=== PATIENT | male | born 1985 | race Caucasian/White ===

== ENCOUNTER 2021-11-16 14:55 | Emergency (ER) | payer BC ==
[~2021-11-16] VITALS: Ht 172.7 cm; Wt 91.2 kg
[2021-11-16 15:50] LABS: BASOPHILS ABSOLUTE AUTO 0.06 K/mm3 (0.00-0.23); BASOPHILS PERCENT AUTO 1 % (0-2); EOSINOPHILS ABSOLUTE AUTO 0.08 K/mm3 (0.00-0.68); EOSINOPHILS PERCENT AUTO 2 % (0-6); Hematocrit 40.1 % (37.0-53.0); Hemoglobin 13.8 g/dL (13.5-17.5); IMMATURE GRAN ABSOLUTE AUTO 0.01 K/mm3 (0.00-0.10); IMMATURE GRAN PERCENT AUTO 0 % (0-1); LYMPHOCYTES PERCENT AUTO 17 % (21-46); MONOCYTES ABSOLUTE AUTO 0.43 K/mm3 (0.16-1.47); MONOCYTES PERCENT AUTO 8 % (4-13); Mean Corpuscular HGB 30.4 pg (26.0-34.0); Mean Corpuscular HGB Conc 34.4 g/dL (31.5-36.5); Mean Corpuscular Volume 88 fL (80-100); Mean Platelet Volume 10.9 fL (9.1-12.4); NEUTROPHILS ABSOLUTE AUTO 3.99 K/mm3 (1.96-9.15); NEUTROPHILS PERCENT AUTO 73 % (41-73); Platelet Count 132 K/mm3 (150-400); RDW Coefficient Variation 17.2 % (11.7-14.2); RDW Standard Deviation 55.6 fL (35.1-46.3); Red Blood Cell Count 4.54 M/mm3 (4.30-5.90); White Blood Cell Count 5.47 K/mm3 (4.00-11.30)
[2021-11-16 16:00] LABS: International Normalized Ratio 1.41; Prothrombin Time Results 14.5 Sec (9.7-11.5)
[2021-11-16 16:04] LABS: Albumin, Blood 3.2 g/dL (3.4-5.0); Albumin/Globulin Ratio 0.7 (0.8-1.8); Bilirubin, Total 13.4 mg/dL (0.1-1.0); Calcium, Blood 9.1 mg/dL (8.5-10.1); Creatinine, Blood 0.61 mg/dL (0.60-1.20); Globulin, Blood 4.7 g/dL (2.2-4.0); Potassium, Blood 3.4 mmol/L (3.5-5.5); Total Protein, Blood 7.9 g/dL (6.4-8.2)
[2021-11-16 19:52] LABS: Source, Urine Clean Catch
[2021-11-16 19:59] LABS: Appearance, Urine Clear (Clear); Blood, Urine 1+ (Neg); Color, Urine Amber (P-Yellow); Glucose Qualitative, Urine Neg (Neg); Ketones, Urine Neg (Neg); Leukocyte Esterase, Urine 1+ (Neg); Nitrite, Urine Neg (Neg); Protein, Urine 1+ (Neg); Urobilinogen, Urine 3+ (Normal)
[2021-11-16 20:15] LABS: Bilirubin, Urine 3+ (Neg)
[2021-11-16 20:18] LABS: Bacteria Not Seen /hpf; Red Blood Cells, Urine 0-2 /hpf (0-2); Squamous Epithelial Cells Rare /hpf (Few); White Blood Cells, Urine 0-2 /hpf (0-5)
[2021-11-16] MEDS ORDERED: Neurontin 300300 MG PO (22:01)
[2021-11-16] MEDS ORDERED: ONDA4ODT SL (22:01)
[2021-11-16] MEDS ORDERED: Ativan1 MG SL (22:01)
== END 2021-11-16 22:34 | disposition home or self-care (01) ==
LOC: ER 14:55
PROVIDERS: Student in an Organized Health Care Education/Training Program
DX: K70.10 Alcoholic hepatitis without ascites (principal); F17.220 Nicotine dependence, chewing tobacco, uncomplicated; Z86.16 Personal history of COVID-19; F41.9 Anxiety disorder, unspecified; Z72.89 Other problems related to lifestyle
CPT/HCPCS: 36415; 74177; 80053; 81001; 83690; 85025; 85610; A9270; J3430; Q9967

== ENCOUNTER 2021-11-25 13:54 | Inpatient (IN) | payer BC ==
[~2021-11-25] VITALS: Ht 175.3 cm; Wt 98.7 kg
[~2021-11-25 13:54] MED LIST: Ativan1 MG SL; Neurontin 300300 MG PO; ONDA4ODT SL
[2021-11-25 15:28] LABS: International Normalized Ratio 1.71; Prothrombin Time Results 17.3 Sec (9.7-11.5)
[2021-11-25 15:42] LABS: BASOPHILS ABSOLUTE AUTO 0.08 K/mm3 (0.00-0.23); BASOPHILS PERCENT AUTO 1 % (0-2); EOSINOPHILS ABSOLUTE AUTO 0.12 K/mm3 (0.00-0.68); EOSINOPHILS PERCENT AUTO 1 % (0-6); Hemoglobin 11.8 g/dL (13.5-17.5); IMMATURE GRAN ABSOLUTE AUTO 0.06 K/mm3 (0.00-0.10); IMMATURE GRAN PERCENT AUTO 1 % (0-1); LYMPHOCYTES ABSOLUTE AUTO 0.67 K/mm3 (0.84-5.20); LYMPHOCYTES PERCENT AUTO 6 % (21-46); MONOCYTES ABSOLUTE AUTO 0.67 K/mm3 (0.16-1.47); MONOCYTES PERCENT AUTO 6 % (4-13); Mean Corpuscular HGB 31.4 pg (26.0-34.0); Mean Corpuscular HGB Conc 36.9 g/dL (31.5-36.5); Mean Corpuscular Volume 85 fL (80-100); Mean Platelet Volume 9.5 fL (9.1-12.4); NEUTROPHILS ABSOLUTE AUTO 8.82 K/mm3 (1.96-9.15); NEUTROPHILS PERCENT AUTO 85 % (41-73); Platelet Count 189 K/mm3 (150-400); RDW Coefficient Variation 17.1 % (11.7-14.2); Red Blood Cell Count 3.76 M/mm3 (4.30-5.90); White Blood Cell Count 10.42 K/mm3 (4.00-11.30)
[2021-11-25 15:44] LABS: Albumin, Blood 2.3 g/dL (3.4-5.0); Albumin/Globulin Ratio 0.6 (0.8-1.8); Bilirubin, Total 24.7 mg/dL (0.1-1.0); Bun/Creatinine Ratio 11.9 (12.0-20.0); Calcium, Blood 8.6 mg/dL (8.5-10.1); Creatinine, Blood 1.09 mg/dL (0.60-1.20); Globulin, Blood 4.1 g/dL (2.2-4.0); Potassium, Blood 3.5 mmol/L (3.5-5.5); Total Protein, Blood 6.4 g/dL (6.4-8.2)
[2021-11-25 18:12] LABS: International Normalized Ratio 1.72; Prothrombin Time Results 17.4 Sec (9.7-11.5)
[2021-11-25 21:24] LABS: Influenza A, PCR NEGATIVE (NEGATIVE); Influenza B, PCR NEGATIVE (NEGATIVE); Resp Syncytial Virus, PCR NEGATIVE (NEGATIVE); SARS-Cov-2 (COVID-19) PCR, MMC NEGATIVE (NEGATIVE)
[2021-11-26 01:55] LABS: International Normalized Ratio 1.73; Prothrombin Time Results 17.5 Sec (9.7-11.5)
[2021-11-26 02:01] LABS: BASOPHILS ABSOLUTE AUTO 0.05 K/mm3 (0.00-0.23); BASOPHILS PERCENT AUTO 1 % (0-2); EOSINOPHILS ABSOLUTE AUTO 0.09 K/mm3 (0.00-0.68); EOSINOPHILS PERCENT AUTO 1 % (0-6); Hemoglobin 10.7 g/dL (13.5-17.5); IMMATURE GRAN ABSOLUTE AUTO 0.04 K/mm3 (0.00-0.10); IMMATURE GRAN PERCENT AUTO 1 % (0-1); LYMPHOCYTES ABSOLUTE AUTO 0.43 K/mm3 (0.84-5.20); LYMPHOCYTES PERCENT AUTO 5 % (21-46); MONOCYTES ABSOLUTE AUTO 0.57 K/mm3 (0.16-1.47); MONOCYTES PERCENT AUTO 7 % (4-13); Mean Corpuscular HGB Conc 36.9 g/dL (31.5-36.5); Mean Corpuscular Volume 87 fL (80-100); Mean Platelet Volume 9.8 fL (9.1-12.4); NEUTROPHILS ABSOLUTE AUTO 7.51 K/mm3 (1.96-9.15); NEUTROPHILS PERCENT AUTO 86 % (41-73); NRBC ABSOLUTE 0.02 K/mm3 (0.00-0.02); NRBC Auto 0.2 /100 WBC (0.0-0.2); Platelet Count 151 K/mm3 (150-400); RDW Coefficient Variation 17.3 % (11.7-14.2); Red Blood Cell Count 3.34 M/mm3 (4.30-5.90); White Blood Cell Count 8.69 K/mm3 (4.00-11.30)
[2021-11-26 02:13] LABS: Albumin, Blood 2.1 g/dL (3.4-5.0); Albumin/Globulin Ratio 0.6 (0.8-1.8); Bilirubin, Total 23.8 mg/dL (0.1-1.0); Calcium, Blood 7.7 mg/dL (8.5-10.1); Creatinine, Blood 1.5 mg/dL (0.60-1.20); Globulin, Blood 3.4 g/dL (2.2-4.0); Potassium, Blood 3.9 mmol/L (3.5-5.5); Total Protein, Blood 5.5 g/dL (6.4-8.2)
[2021-11-26 02:26] LABS: Source, Urine Clean Catch
[2021-11-26 02:33] LABS: Blood, Urine 3+ (Neg); Glucose Qualitative, Urine Neg (Neg); Ketones, Urine 1+ (Neg); Leukocyte Esterase, Urine 1+ (Neg); Nitrite, Urine Neg (Neg); Protein, Urine 2+ (Neg); Specific Gravity, Urine 1.015 (1.003-1.022); Urobilinogen, Urine 3+ (Normal); pH, Urine 6.5 (5.0-8.0)
[2021-11-26 02:35] LABS: Appearance, Urine Cloudy (Clear); Bilirubin, Urine 3+ (Neg); Color, Urine Amber (P-Yellow)
[2021-11-26 02:46] LABS: U Amphetamine Screen Not Detected; U Barbituate Screen Not Detected; U Benzodiazapine Screen DETECTED; U Buprenorphine Screen Not Detected; U Cannabinoids Screen Not Detected; U Cocaine Screen Not Detected; U Methadone Screen Not Detected; U Methamphetamine Screen Not Detected; U Opiates Screen Not Detected; U Oxycodone Screen Not Detected; U Phencyclidine Screen Not Detected; U Propoxyphene Screen Not Detected
[2021-11-26 02:54] LABS: Bacteria Many /hpf; Mucus Light (0-Heavy); Squamous Epithelial Cells Not Seen /hpf (Few); White Blood Cells, Urine 50-100 /hpf (0-5)
[2021-11-26 02:55] LABS: Amorphous Mod (0-Heavy); Transitional Epithelial Cells Few /hpf (0-Rare); WBC Cast 0-2 /lpf (0)
--- NOTE | 2021-11-26 05:49 | NUR ---
SHIFT SUMMARY ASSUMED CARE OF PT AROUND 2200. PT IS A/OX4 BUT LETHARGIC. SKIN TONE JAUNDICED. HEART SOUNDS TACHY. LUNG SOUNDS CLEAR. PT ABD IS DISTENDED, FIRM, AND TENDER. PT C/O PAIN ON THE R SIDE. PT VOIDED DARK/ GREEN URINE. SAMPLE SENT. PT HAS HAD TWO BM, LOOSE AND BROWN/ORANGE AND SPECS OF BLOOD. PT STATES HE HAS HEMRROIDS. PT HAD EPISODE OF BROWN/ BLOODY EMESIS AFTER TAKING PO LIBRIUM. CIWAHS TREATED WITH IV MEDICATIONS. PT IS UNSTEADY ON HIS FEET AND NEEDS 1P ASSISTANCE. PT CIWAH RANGED FROM 8-19. PT STATES LAST DRINK WAS 11/25/21 @ 1000.
[2021-11-26 07:16] LABS: BASOPHILS ABSOLUTE AUTO 0.05 K/mm3 (0.00-0.23); BASOPHILS PERCENT AUTO 1 % (0-2); EOSINOPHILS ABSOLUTE AUTO 0.07 K/mm3 (0.00-0.68); EOSINOPHILS PERCENT AUTO 1 % (0-6); Hematocrit 28.8 % (37.0-53.0); Hemoglobin 10.8 g/dL (13.5-17.5); IMMATURE GRAN ABSOLUTE AUTO 0.05 K/mm3 (0.00-0.10); IMMATURE GRAN PERCENT AUTO 1 % (0-1); LYMPHOCYTES PERCENT AUTO 3 % (21-46); MONOCYTES ABSOLUTE AUTO 0.67 K/mm3 (0.16-1.47); MONOCYTES PERCENT AUTO 6 % (4-13); Mean Corpuscular HGB 32.3 pg (26.0-34.0); Mean Corpuscular HGB Conc 37.5 g/dL (31.5-36.5); Mean Corpuscular Volume 86 fL (80-100); Mean Platelet Volume 9.4 fL (9.1-12.4); NEUTROPHILS ABSOLUTE AUTO 9.51 K/mm3 (1.96-9.15); NEUTROPHILS PERCENT AUTO 89 % (41-73); Platelet Count 157 K/mm3 (150-400); RDW Coefficient Variation 17.4 % (11.7-14.2); RDW Standard Deviation 54.4 fL (35.1-46.3); Red Blood Cell Count 3.34 M/mm3 (4.30-5.90); White Blood Cell Count 10.65 K/mm3 (4.00-11.30)
[2021-11-26 07:56] LABS: Albumin/Globulin Ratio 0.6 (0.8-1.8); Bilirubin, Total 23.9 mg/dL (0.1-1.0); Bun/Creatinine Ratio 10.7 (12.0-20.0); Calcium, Blood 7.7 mg/dL (8.5-10.1); Creatinine, Blood 1.59 mg/dL (0.60-1.20); Globulin, Blood 3.6 g/dL (2.2-4.0); Total Protein, Blood 5.6 g/dL (6.4-8.2)
--- NOTE | 2021-11-26 12:07 | NUR ---
UPDATE PT A&O X4 THIS AM. SPEECH GARBLED, DIFFICULT TO UNDERSTAND. THIS MORNING, PT ABLE TO STAND/TRANSFER TO BSC W/ 1 PERSON ASSIST. ON LAST ATTEMPT TO BSC, PT MORE UNSTEADY W/ LOSS OF BALANCE, STABILIZED & HELD UPRIGHT W/ MAX NURSE ASSIST, PREVENTING PT FALL. PT URINATED ALL OVER FLOOR & HAD 1 SMALL, SOFT BROWN BM IN BSC W/ SPOTS OF RED IN STOOL. SMALL AMOUNT OF RED NOTED ON WIPES AFTER WIPING PT. PT ASSISTED BACK TO BED BY 2 PEOPLE. PT DROPPING THINGS FREQUENTLY, BECOMING LESS COORDINATED T/O THE MORNING. PT CIWA 10-11, MEDICATING W/ PRN PO LIBRIUM PER EMAR. PT SWALLOWING FIRST DOSE OF LIBRIUM WELL. PT DIFFICULTY SWALLOWING 2ND DOSE OF LIBRIUM LATER THIS AM, SPUTTERING WATER AT THE END. PT VSS. SPO2 > 92% ON RA. MONITOR SHOWING ST, HR 110s-130s. PT SLEEPING INTERMITTENTLY. BED ALARM ON.
[2021-11-26 13:04] LABS: BASOPHILS ABSOLUTE AUTO 0.02 K/mm3 (0.00-0.23); BASOPHILS PERCENT AUTO 0 % (0-2); EOSINOPHILS ABSOLUTE AUTO 0.05 K/mm3 (0.00-0.68); EOSINOPHILS PERCENT AUTO 1 % (0-6); Hematocrit 28.7 % (37.0-53.0); Hemoglobin 10.6 g/dL (13.5-17.5); IMMATURE GRAN ABSOLUTE AUTO 0.03 K/mm3 (0.00-0.10); IMMATURE GRAN PERCENT AUTO 0 % (0-1); LYMPHOCYTES ABSOLUTE AUTO 0.24 K/mm3 (0.84-5.20); LYMPHOCYTES PERCENT AUTO 3 % (21-46); MONOCYTES ABSOLUTE AUTO 0.33 K/mm3 (0.16-1.47); MONOCYTES PERCENT AUTO 3 % (4-13); Mean Corpuscular HGB 32.3 pg (26.0-34.0); Mean Corpuscular HGB Conc 36.9 g/dL (31.5-36.5); Mean Corpuscular Volume 88 fL (80-100); Mean Platelet Volume 9.5 fL (9.1-12.4); NEUTROPHILS ABSOLUTE AUTO 8.93 K/mm3 (1.96-9.15); NEUTROPHILS PERCENT AUTO 93 % (41-73); Platelet Count 133 K/mm3 (150-400); RDW Coefficient Variation 17.9 % (11.7-14.2); RDW Standard Deviation 56.9 fL (35.1-46.3); Red Blood Cell Count 3.28 M/mm3 (4.30-5.90)
[2021-11-26 13:34] LABS: Albumin/Globulin Ratio 0.6 (0.8-1.8); Bilirubin, Total 23.5 mg/dL (0.1-1.0); Bun/Creatinine Ratio 10.2 (12.0-20.0); Calcium, Blood 7.7 mg/dL (8.5-10.1); Creatinine, Blood 1.77 mg/dL (0.60-1.20); Globulin, Blood 3.5 g/dL (2.2-4.0); Potassium, Blood 4.5 mmol/L (3.5-5.5); Total Protein, Blood 5.5 g/dL (6.4-8.2)
--- NOTE | 2021-11-26 17:39 | NUR ---
[facility] TRANSFER [facility] W/ BED ASSIGNMENT FOR PT. PT's PARENTS AT BEDSIDE, UPDATED ON PT TRANSFER. PT W/ NO FURTHER BLOODY EMESIS OR STOOL THIS SHIFT AFTER THIS AM. PT VSS. SPO2 > 92% ON RA. MONITOR SHOWING ST, HR 100-130s. CIWAS 10-13. REPORT CALLED TO ACCEPTING [facility] NURSE. PT MEDICATED W/ PRN LIBRIUM PER EMAR PRTOR TO TRANSFER. EMS TO , TAKING PT BY BELKIS W/ CONTINUOUS PROTONIX GTT, OCTREOTIDE GTT & NS GTT INFUSING PER ORDERS. PT DEPARTED PCU FOR THE [facility] @ 2234. PT's BELONGINGS TAKEN HOME BY PT's PARENTS.
== END 2021-11-26 17:24 | disposition short-term general hospital (02) | DRG 433 ==
LOC: ER 13:54 → PCU 22:31
PROVIDERS: Emergency Medicine; Physician Assistant; Student in an Organized Health Care Education/Training Program; ADMIT Internal Medicine
DX: K70.10 Alcoholic hepatitis without ascites (principal); E44.1 Mild protein-calorie malnutrition; F10.239 Alcohol dependence with withdrawal, unspecified; E87.1 Hypo-osmolality and hyponatremia; K92.0 Hematemesis; E88.09 Other disorders of plasma-protein metabolism, not elsewhere classified; E16.2 Hypoglycemia, unspecified; F17.220 Nicotine dependence, chewing tobacco, uncomplicated; E86.0 Dehydration; Z20.822 Contact with and (suspected) exposure to COVID-19; F41.9 Anxiety disorder, unspecified; Z68.29 Body mass index [BMI] 29.0-29.9, adult; Z98.890 Other specified postprocedural states; Z79.899 Other long term (current) drug therapy
CPT/HCPCS: 0241U; 36415; 80053; 81001; 82140; 83690; 83735; 84100; 85025; 85610; 85730; 87086; 96365; 96366; 96368; 96375; 96376; 99285-25; A9270; C1751; C9113; J0696; J2060; J2354; J2405; J3411; J7030; J7050; J7060

== ENCOUNTER → 2021-12-31 | Outpatient (CLI) | payer BC | END | disposition home or self-care (01) | LOC: LAB DAV 07:30 → EDSTATUS 10:18 | DX: Z02.83 Encounter for blood-alcohol and blood-drug test (principal) | CPT/HCPCS: G0480 ==

== ENCOUNTER → 2022-01-03 | Outpatient (CLI) | payer BC | END | disposition home or self-care (01) | LOC: LAB DAV 05:50 → EDSTATUS 10:18 | DX: Z02.83 Encounter for blood-alcohol and blood-drug test (principal); Z79.899 Other long term (current) drug therapy | CPT/HCPCS: G0480 ==

== ENCOUNTER 2022-01-11 14:28 | Day surgery (SDC) | payer BC | END 2022-01-11 23:59 | disposition home or self-care (01) | LOC: US 14:28 | DX: K72.00 Acute and subacute hepatic failure without coma (principal); R18.8 Other ascites | CPT/HCPCS: 49083 ==

== ENCOUNTER 2022-01-14 14:31 | Day surgery (SDC) | payer BC | END 2022-01-14 22:55 | disposition home or self-care (01) | LOC: US 14:31 | DX: K72.00 Acute and subacute hepatic failure without coma (principal); K70.11 Alcoholic hepatitis with ascites; F10.10 Alcohol abuse, uncomplicated | CPT/HCPCS: 49083 ==

== ENCOUNTER 2022-01-18 13:51 | Day surgery (SDC) | payer BC | END 2022-01-18 16:20 | disposition home or self-care (01) | LOC: ATC 13:51 → US 13:51 → ATC 16:20 | DX: K72.00 Acute and subacute hepatic failure without coma (principal) | CPT/HCPCS: 49083; 96365; P9047 ==

== ENCOUNTER 2022-01-21 14:30 | Day surgery (SDC) | payer BC | END 2022-01-21 23:07 | disposition home or self-care (01) | LOC: US 14:30 | DX: K72.00 Acute and subacute hepatic failure without coma (principal); R18.8 Other ascites | CPT/HCPCS: 49083 ==

== ENCOUNTER → 2022-01-24 | Outpatient (CLI) | payer BC ==
[2022-01-24 17:40] LABS: BASOPHILS ABSOLUTE AUTO 0.08 K/mm3 (0.00-0.23); BASOPHILS PERCENT AUTO 0 % (0-2); EOSINOPHILS ABSOLUTE AUTO 0.06 K/mm3 (0.00-0.68); EOSINOPHILS PERCENT AUTO 0 % (0-6); Hematocrit 25.7 % (37.0-53.0); Hemoglobin 8.2 g/dL (13.5-17.5); IMMATURE GRAN ABSOLUTE AUTO 0.09 K/mm3 (0.00-0.10); IMMATURE GRAN PERCENT AUTO 1 % (0-1); LYMPHOCYTES ABSOLUTE AUTO 1.96 K/mm3 (0.84-5.20); LYMPHOCYTES PERCENT AUTO 11 % (21-46); MONOCYTES ABSOLUTE AUTO 1.58 K/mm3 (0.16-1.47); MONOCYTES PERCENT AUTO 9 % (4-13); Mean Corpuscular HGB 28.2 pg (26.0-34.0); Mean Corpuscular HGB Conc 31.9 g/dL (31.5-36.5); Mean Corpuscular Volume 88 fL (80-100); Mean Platelet Volume 9.6 fL (9.1-12.4); NEUTROPHILS ABSOLUTE AUTO 14.85 K/mm3 (1.96-9.15); NEUTROPHILS PERCENT AUTO 80 % (41-73); Platelet Count 189 K/mm3 (150-400); RDW Coefficient Variation 14.2 % (11.7-14.2); RDW Standard Deviation 45.7 fL (35.1-46.3); Red Blood Cell Count 2.91 M/mm3 (4.30-5.90); White Blood Cell Count 18.62 K/mm3 (4.00-11.30)
[2022-01-24 18:40] LABS: Albumin, Blood 1.1 g/dL (3.4-5.0); Albumin/Globulin Ratio 0.2 (0.8-1.8); Bilirubin, Total 2.2 mg/dL (0.1-1.0); Bun/Creatinine Ratio 5.8 (12.0-20.0); Calcium, Blood 7.7 mg/dL (8.5-10.1); Creatinine, Blood 3.42 mg/dL (0.60-1.20); Globulin, Blood 4.6 g/dL (2.2-4.0); Total Protein, Blood 5.7 g/dL (6.4-8.2)
== END | disposition home or self-care (01) ==
LOC: LAB SHORT 16:05
PROVIDERS: Internal Medicine
DX: K70.31 Alcoholic cirrhosis of liver with ascites (principal)
CPT/HCPCS: 80053; 85025

== ENCOUNTER 2022-01-25 15:05 | Day surgery (SDC) | payer BC | END 2022-01-25 16:30 | disposition home or self-care (01) | LOC: ATC 15:05 | DX: K74.60 Unspecified cirrhosis of liver (principal); R18.8 Other ascites; K72.00 Acute and subacute hepatic failure without coma | CPT/HCPCS: 49083; P9047 ==

== ENCOUNTER 2022-01-28 14:37 | Day surgery (SDC) | payer BC | END 2022-01-28 23:19 | disposition home or self-care (01) | LOC: US 14:37 | DX: K72.00 Acute and subacute hepatic failure without coma (principal); K74.60 Unspecified cirrhosis of liver; R18.8 Other ascites | CPT/HCPCS: 49083 ==

== ENCOUNTER 2022-01-31 14:34 | Day surgery (SDC) | payer BC | END 2022-01-31 22:52 | disposition home or self-care (01) | LOC: US 14:34 | DX: K72.00 Acute and subacute hepatic failure without coma (principal); K70.31 Alcoholic cirrhosis of liver with ascites | CPT/HCPCS: 49083 ==

== ENCOUNTER 2022-02-11 14:35 | Day surgery (SDC) | payer BC | END 2022-02-11 23:55 | disposition home or self-care (01) | LOC: US 14:35 | DX: K72.00 Acute and subacute hepatic failure without coma (principal); R18.8 Other ascites | CPT/HCPCS: 49083 ==

== ENCOUNTER 2022-02-15 13:35 | Day surgery (SDC) | payer BC | END 2022-02-15 22:46 | disposition home or self-care (01) | LOC: US 13:35 | DX: K72.00 Acute and subacute hepatic failure without coma (principal); R18.8 Other ascites | CPT/HCPCS: 49083 ==

== ENCOUNTER 2022-02-18 14:40 | Day surgery (SDC) | payer BC | END 2022-02-18 23:59 | disposition home or self-care (01) | LOC: US 14:40 | DX: K74.60 Unspecified cirrhosis of liver (principal); R18.8 Other ascites; K72.00 Acute and subacute hepatic failure without coma | CPT/HCPCS: 49083 ==

== ENCOUNTER 2022-02-22 13:36 | Day surgery (SDC) | payer BC | END 2022-02-22 22:40 | disposition home or self-care (01) | LOC: US 13:36 | DX: K72.00 Acute and subacute hepatic failure without coma (principal); R18.8 Other ascites | CPT/HCPCS: 49083 ==

== ENCOUNTER → 2022-02-23 | Outpatient (CLI) | payer BC ==
[2022-02-23 14:34] LABS: Source, Urine Clean Catch
[2022-02-23 17:18] LABS: Appearance, Urine Cloudy (Clear); Blood, Urine 1+ (Neg); Color, Urine Amber (P-Yellow); Glucose Qualitative, Urine Neg (Neg); Ketones, Urine 2+ (Neg); Leukocyte Esterase, Urine 3+ (Neg); Nitrite, Urine Pos (Neg); Protein, Urine 2+ (Neg); Urobilinogen, Urine 2+ (Normal)
[2022-02-23 17:27] LABS: Bilirubin, Urine 2+ (Neg)
[2022-02-23 17:28] LABS: Granular Casts 0-2 /lpf (0); White Blood Cells, Urine 25-50 /hpf (0-5)
[2022-02-23 17:29] LABS: Bacteria Many /hpf; Mucus Light (0-Heavy); Squamous Epithelial Cells Rare /hpf (Few)
== END | disposition home or self-care (01) ==
LOC: LAB SHORT 14:32 → LAB 14:32
PROVIDERS: Internal Medicine
DX: R30.0 Dysuria (principal)
CPT/HCPCS: 81001; 87086

== ENCOUNTER 2022-02-25 14:39 | Day surgery (SDC) | payer BC | END 2022-02-25 23:28 | disposition home or self-care (01) | LOC: US 14:39 | DX: K72.00 Acute and subacute hepatic failure without coma (principal) | CPT/HCPCS: 49083 ==

== ENCOUNTER 2022-03-01 13:38 | Day surgery (SDC) | payer BC ==
[2022-03-01 14:39] LABS: BASOPHILS ABSOLUTE AUTO 0.07 K/mm3 (0.00-0.23); BASOPHILS PERCENT AUTO 1 % (0-2); EOSINOPHILS ABSOLUTE AUTO 0.07 K/mm3 (0.00-0.68); EOSINOPHILS PERCENT AUTO 1 % (0-6); Hematocrit 26.5 % (37.0-53.0); Hemoglobin 8.5 g/dL (13.5-17.5); IMMATURE GRAN ABSOLUTE AUTO 0.01 K/mm3 (0.00-0.10); IMMATURE GRAN PERCENT AUTO 0 % (0-1); LYMPHOCYTES ABSOLUTE AUTO 1.95 K/mm3 (0.84-5.20); LYMPHOCYTES PERCENT AUTO 34 % (21-46); MONOCYTES ABSOLUTE AUTO 0.79 K/mm3 (0.16-1.47); MONOCYTES PERCENT AUTO 14 % (4-13); Mean Corpuscular HGB 27.5 pg (26.0-34.0); Mean Corpuscular HGB Conc 32.1 g/dL (31.5-36.5); Mean Corpuscular Volume 86 fL (80-100); Mean Platelet Volume 8.4 fL (9.1-12.4); NEUTROPHILS ABSOLUTE AUTO 2.83 K/mm3 (1.96-9.15); NEUTROPHILS PERCENT AUTO 50 % (41-73); Platelet Count 196 K/mm3 (150-400); RDW Coefficient Variation 15.6 % (11.7-14.2); RDW Standard Deviation 48.9 fL (35.1-46.3); Red Blood Cell Count 3.09 M/mm3 (4.30-5.90); White Blood Cell Count 5.72 K/mm3 (4.00-11.30)
[2022-03-01 14:52] LABS: International Normalized Ratio 1.37; Prothrombin Time Results 14.1 Sec (9.7-11.5)
== END 2022-03-01 23:04 | disposition home or self-care (01) ==
LOC: US 13:38
PROVIDERS: Internal Medicine Hematology & Oncology
DX: K72.00 Acute and subacute hepatic failure without coma (principal); R18.8 Other ascites
CPT/HCPCS: 49083; 85025; 85610; 85730

== ENCOUNTER 2022-03-04 13:43 | Day surgery (SDC) | payer BC | END 2022-03-04 23:12 | disposition home or self-care (01) | LOC: US 13:43 | DX: K72.00 Acute and subacute hepatic failure without coma (principal); R18.8 Other ascites | CPT/HCPCS: 49083 ==

== ENCOUNTER → 2022-03-07 | Outpatient (CLI) | payer BC | LOC: LAB DAV 08:10 | DX: Z13.89 Encounter for screening for other disorder (principal) | CPT/HCPCS: G0480 ==

== ENCOUNTER 2022-03-08 13:30 | Day surgery (SDC) | payer BC | END 2022-03-08 23:10 | disposition home or self-care (01) | LOC: US 13:30 | DX: K72.00 Acute and subacute hepatic failure without coma (principal); R18.8 Other ascites | CPT/HCPCS: 49083 ==

== ENCOUNTER 2022-03-11 14:37 | Day surgery (SDC) | payer BC | END 2022-03-11 23:04 | disposition home or self-care (01) | LOC: US 14:37 | DX: K72.00 Acute and subacute hepatic failure without coma (principal); R18.8 Other ascites | CPT/HCPCS: 49083 ==

== ENCOUNTER 2022-03-15 13:30 | Day surgery (SDC) | payer BC | END 2022-03-15 23:20 | disposition home or self-care (01) | LOC: US 13:30 | DX: K72.00 Acute and subacute hepatic failure without coma (principal); R18.8 Other ascites | CPT/HCPCS: 49083 ==

== ENCOUNTER 2022-03-18 13:37 | Day surgery (SDC) | payer BC | END 2022-03-18 22:56 | disposition home or self-care (01) | LOC: US 13:37 | DX: K72.00 Acute and subacute hepatic failure without coma (principal); M54.50 Low back pain, unspecified; R18.8 Other ascites | CPT/HCPCS: 49083; 72100 ==

== ENCOUNTER → 2022-03-18 | Outpatient (CLI) | payer BC ==
[2022-03-18 15:13] LABS: International Normalized Ratio 1.22; Prothrombin Time Results 12.6 Sec (9.7-11.5)
== END | disposition home or self-care (01) ==
LOC: LAB 14:30 → LAB SHORT 14:30
PROVIDERS: Internal Medicine
DX: K72.00 Acute and subacute hepatic failure without coma (principal); N18.6 End stage renal disease; R04.0 Epistaxis
CPT/HCPCS: 85610

== ENCOUNTER 2022-03-21 10:30 | Day surgery (SDC) | payer BC | END 2022-03-21 22:51 | disposition home or self-care (01) | LOC: US 10:30 | DX: K72.00 Acute and subacute hepatic failure without coma (principal); R18.8 Other ascites | CPT/HCPCS: 49083 ==

== ENCOUNTER 2022-03-25 13:38 | Day surgery (SDC) | payer BC ==
--- NOTE | 2022-03-25 13:54 | NUR ---
PT CANCELLED APPOINTMENT TODAY AND ALL FUTURE APPOINTMENTS.
== END 2022-03-25 23:10 | disposition home or self-care (01) ==
LOC: US 13:38
DX: K72.00 Acute and subacute hepatic failure without coma (principal); R18.8 Other ascites
CPT/HCPCS: 49083

== ENCOUNTER 2022-03-29 13:30 | Day surgery (SDC) | payer BC | END 2022-03-29 22:56 | disposition home or self-care (01) | LOC: US 13:30 | DX: K72.00 Acute and subacute hepatic failure without coma (principal); R18.8 Other ascites | CPT/HCPCS: 49083 ==

== ENCOUNTER 2022-04-01 13:39 | Day surgery (SDC) | payer BC | END 2022-04-01 22:45 | disposition home or self-care (01) | LOC: US 13:39 | DX: K72.00 Acute and subacute hepatic failure without coma (principal); R18.8 Other ascites | CPT/HCPCS: 49083 ==

== ENCOUNTER 2022-04-06 10:39 | Day surgery (SDC) | payer BC | END 2022-04-06 23:04 | disposition home or self-care (01) | LOC: US 10:39 | DX: K72.00 Acute and subacute hepatic failure without coma (principal); R18.8 Other ascites | CPT/HCPCS: 49083 ==

== ENCOUNTER 2022-04-12 13:31 | Day surgery (SDC) | payer BC ==
[2022-04-12 16:08] LABS: BASOPHILS ABSOLUTE AUTO 0.05 K/mm3 (0.00-0.23); BASOPHILS PERCENT AUTO 1 % (0-2); EOSINOPHILS ABSOLUTE AUTO 0.09 K/mm3 (0.00-0.68); EOSINOPHILS PERCENT AUTO 2 % (0-6); Hematocrit 28.1 % (37.0-53.0); Hemoglobin 9.1 g/dL (13.5-17.5); IMMATURE GRAN ABSOLUTE AUTO 0.01 K/mm3 (0.00-0.10); IMMATURE GRAN PERCENT AUTO 0 % (0-1); International Normalized Ratio 1.26; LYMPHOCYTES ABSOLUTE AUTO 1.37 K/mm3 (0.84-5.20); LYMPHOCYTES PERCENT AUTO 33 % (21-46); MONOCYTES ABSOLUTE AUTO 0.62 K/mm3 (0.16-1.47); MONOCYTES PERCENT AUTO 15 % (4-13); Mean Corpuscular HGB 28.2 pg (26.0-34.0); Mean Corpuscular HGB Conc 32.4 g/dL (31.5-36.5); Mean Corpuscular Volume 87 fL (80-100); Mean Platelet Volume 8.4 fL (9.1-12.4); NEUTROPHILS PERCENT AUTO 48 % (41-73); Platelet Count 212 K/mm3 (150-400); RDW Coefficient Variation 17.4 % (11.7-14.2); RDW Standard Deviation 55.4 fL (35.1-46.3); Red Blood Cell Count 3.23 M/mm3 (4.30-5.90); White Blood Cell Count 4.14 K/mm3 (4.00-11.30)
[2022-04-12 16:33] LABS: Albumin, Blood 1.8 g/dL (3.4-5.0); Albumin/Globulin Ratio 0.4 (0.8-1.8); Bilirubin, Total 0.6 mg/dL (0.1-1.0); Bun/Creatinine Ratio 10.6 (12.0-20.0); Calcium, Blood 8.4 mg/dL (8.5-10.1); Creatinine, Blood 2.26 mg/dL (0.60-1.20); Globulin, Blood 4.8 g/dL (2.2-4.0); Potassium, Blood 2.8 mmol/L (3.5-5.5); Total Protein, Blood 6.6 g/dL (6.4-8.2)
== END 2022-04-12 22:54 | disposition home or self-care (01) ==
LOC: US 13:31
PROVIDERS: Internal Medicine
DX: K72.00 Acute and subacute hepatic failure without coma (principal); R18.8 Other ascites
CPT/HCPCS: 49083; 80053; 85025; 85610

== ENCOUNTER 2022-04-15 08:34 | Day surgery (SDC) | payer BC | END 2022-04-15 22:49 | disposition home or self-care (01) | LOC: US 08:34 | DX: K72.00 Acute and subacute hepatic failure without coma (principal); R18.8 Other ascites | CPT/HCPCS: 49083; 72148; 72195 ==

== ENCOUNTER 2022-04-19 13:33 | Day surgery (SDC) | payer BC | END 2022-04-19 23:00 | disposition home or self-care (01) | LOC: US 13:33 | DX: K72.01 Acute and subacute hepatic failure with coma (principal); R18.8 Other ascites | CPT/HCPCS: 49083 ==

== ENCOUNTER 2022-04-22 13:33 | Day surgery (SDC) | payer BC | END 2022-04-22 22:58 | disposition home or self-care (01) | LOC: US 13:33 | DX: K72.00 Acute and subacute hepatic failure without coma (principal); R18.8 Other ascites | CPT/HCPCS: 49083 ==

== ENCOUNTER → 2022-04-22 | Outpatient (CLI) | payer BC ==
[2022-04-22 15:09] LABS: BASOPHILS ABSOLUTE AUTO 0.05 K/mm3 (0.00-0.23); BASOPHILS PERCENT AUTO 2 % (0-2); EOSINOPHILS ABSOLUTE AUTO 0.12 K/mm3 (0.00-0.68); EOSINOPHILS PERCENT AUTO 4 % (0-6); Hemoglobin 8.4 g/dL (13.5-17.5); IMMATURE GRAN ABSOLUTE AUTO 0.01 K/mm3 (0.00-0.10); IMMATURE GRAN PERCENT AUTO 0 % (0-1); LYMPHOCYTES ABSOLUTE AUTO 1.09 K/mm3 (0.84-5.20); LYMPHOCYTES PERCENT AUTO 33 % (21-46); MONOCYTES ABSOLUTE AUTO 0.54 K/mm3 (0.16-1.47); MONOCYTES PERCENT AUTO 17 % (4-13); Mean Corpuscular HGB 27.6 pg (26.0-34.0); Mean Corpuscular HGB Conc 32.3 g/dL (31.5-36.5); Mean Corpuscular Volume 86 fL (80-100); Mean Platelet Volume 8.4 fL (9.1-12.4); NEUTROPHILS ABSOLUTE AUTO 1.45 K/mm3 (1.96-9.15); NEUTROPHILS PERCENT AUTO 45 % (41-73); Platelet Count 223 K/mm3 (150-400); RDW Standard Deviation 52.8 fL (35.1-46.3); Red Blood Cell Count 3.04 M/mm3 (4.30-5.90); White Blood Cell Count 3.26 K/mm3 (4.00-11.30)
[2022-04-22 15:33] LABS: International Normalized Ratio 1.19; Prothrombin Time Results 12.4 Sec (9.7-11.5)
[2022-04-22 15:38] LABS: Albumin, Blood 1.7 g/dL (3.4-5.0); Albumin/Globulin Ratio 0.4 (0.8-1.8); Bilirubin, Total 0.4 mg/dL (0.1-1.0); Bun/Creatinine Ratio 18.4 (12.0-20.0); Calcium, Blood 8.4 mg/dL (8.5-10.1); Creatinine, Blood 1.96 mg/dL (0.60-1.20); Globulin, Blood 4.2 g/dL (2.2-4.0); Potassium, Blood 3.3 mmol/L (3.5-5.5); Total Protein, Blood 5.9 g/dL (6.4-8.2)
== END | disposition home or self-care (01) ==
LOC: LAB SHORT 14:37 → LAB 14:37
PROVIDERS: Internal Medicine
DX: K70.11 Alcoholic hepatitis with ascites (principal)
CPT/HCPCS: 80053; 85025; 85610

== ENCOUNTER 2022-04-26 13:38 | Day surgery (SDC) | payer BC | END 2022-04-26 22:58 | disposition home or self-care (01) | LOC: US 13:38 | DX: K72.00 Acute and subacute hepatic failure without coma (principal); R18.8 Other ascites | CPT/HCPCS: 49083 ==

== ENCOUNTER 2022-04-29 13:37 | Day surgery (SDC) | payer BC | END 2022-04-29 23:01 | disposition home or self-care (01) | LOC: US 13:37 | DX: K72.00 Acute and subacute hepatic failure without coma (principal); R18.8 Other ascites | CPT/HCPCS: 76705 ==

== ENCOUNTER 2022-05-06 13:34 | Day surgery (SDC) | payer BC | END 2022-05-07 23:28 | disposition home or self-care (01) | LOC: US 13:34 | DX: K72.00 Acute and subacute hepatic failure without coma (principal); R18.8 Other ascites | CPT/HCPCS: 49083 ==

== ENCOUNTER 2022-05-10 13:36 | Day surgery (SDC) | payer BC | END 2022-05-10 23:16 | disposition home or self-care (01) | LOC: US 13:36 | DX: K72.00 Acute and subacute hepatic failure without coma (principal); R18.8 Other ascites | CPT/HCPCS: 49083 ==

== ENCOUNTER 2022-05-17 14:39 | Day surgery (SDC) | payer BC | END 2022-05-17 22:34 | disposition home or self-care (01) | LOC: US 14:39 | DX: K72.00 Acute and subacute hepatic failure without coma (principal) | CPT/HCPCS: 49083 ==

== ENCOUNTER 2022-05-27 14:48 | Day surgery (SDC) | payer BC ==
[~2022-05-27 14:48] MED LIST changes: +AMOCLA875 PO; +CALCIUM ACETAT667 M2 PO; +DAILY-VITE1 EAC1 PO; +FUROSEMIDE40 MG PO; +K-TAB ER20 ME1 PO; +PYRI100 PO; +Prilosec Otc20 MG; +SPIRONOLACTONE25 MG PO; +Vitamin B-12100 MCG PO; +XIFAXAN550 MG PO
== END 2022-05-27 22:53 | disposition home or self-care (01) ==
LOC: US 14:48
DX: K72.00 Acute and subacute hepatic failure without coma (principal)
CPT/HCPCS: 76705

== ENCOUNTER 2022-05-31 14:41 | Day surgery (SDC) | payer BC | END 2022-05-31 22:42 | disposition home or self-care (01) | LOC: US 14:41 | DX: K72.00 Acute and subacute hepatic failure without coma (principal) | CPT/HCPCS: 76705 ==

== ENCOUNTER → 2022-06-07 | Outpatient (CLI) | payer BC ==
[2022-06-07 11:30] LABS: Protein, Urine Quantitative 10.8 mg/dL (0.0-11.9)
[2022-06-07 11:40] LABS: Microalbumin, Urine Quant. <5.000 mg/L (0.000-20.000)
== END | disposition home or self-care (01) ==
LOC: LAB SHORT 07:00 → LAB FUT 05-30 13:55
PROVIDERS: Internal Medicine Nephrology
DX: N18.30 Chronic kidney disease, stage 3 unspecified (principal); D63.1 Anemia in chronic kidney disease; N25.81 Secondary hyperparathyroidism of renal origin; E55.9 Vitamin D deficiency, unspecified; E78.00 Pure hypercholesterolemia, unspecified; G60.9 Hereditary and idiopathic neuropathy, unspecified; R76.9 Abnormal immunological finding in serum, unspecified; R94.5 Abnormal results of liver function studies
CPT/HCPCS: 81050; 82043; 82570; 84156

== ENCOUNTER 2022-06-10 14:44 | Day surgery (SDC) | payer BC | END 2022-06-10 22:40 | disposition home or self-care (01) | LOC: US 14:44 | DX: K72.00 Acute and subacute hepatic failure without coma (principal); R18.8 Other ascites | CPT/HCPCS: 76705 ==

== ENCOUNTER → 2023-09-06 | Outpatient (CLI) | payer BC ==
[2023-09-06 18:20] LABS: Albumin, Blood 3.7 g/dL (3.4-5.0); Albumin/Globulin Ratio 1.2 (0.8-1.8); Bilirubin, Direct 0.1 mg/dL (0.0-0.3); Bilirubin, Indirect 0.6 mg/dL (0.1-0.7); Bilirubin, Total 0.7 mg/dL (0.1-1.0); Calcium, Blood 8.9 mg/dL (8.5-10.1); Creatinine, Blood 1.5 mg/dL (0.60-1.20); Globulin, Blood 3.2 g/dL (2.2-4.0); Phosphorus, Blood 3.1 mg/dL (2.5-4.9); Potassium, Blood 4.3 mmol/L (3.5-5.5); Total Protein, Blood 6.9 g/dL (6.4-8.2)
[2023-09-08 08:10] LABS: FERRITIN 263 ng/mL (30-400); IRON BIND.CAP.(TIBC) 295 ug/dL (250-450); IRON SATURATION 32 % (15-55); IRON, SERUM 94 ug/dL (38-169); UIBC 201 ug/dL (111-343)
== END | disposition home or self-care (01) ==
LOC: LAB SHORT 16:00 → LAB 16:00
PROVIDERS: Internal Medicine Nephrology; Registered Nurse Oncology
DX: D50.9 Iron deficiency anemia, unspecified (principal); N18.2 Chronic kidney disease, stage 2 (mild); N25.81 Secondary hyperparathyroidism of renal origin; E55.9 Vitamin D deficiency, unspecified; E78.00 Pure hypercholesterolemia, unspecified; R76.9 Abnormal immunological finding in serum, unspecified; R94.5 Abnormal results of liver function studies; R94.6 Abnormal results of thyroid function studies
CPT/HCPCS: 80053; 82248; 82728; 83540; 83550; 84100